=== PATIENT | male | born 1990 | race Caucasian/White ===

== ENCOUNTER 2020-01-13 11:52 | Emergency (ER) | payer MEDICAID ==
[~2020-01-13] VITALS: Ht 162.6 cm; Wt 74.0 kg
[2020-01-13] MEDS ORDERED: IBUPROFEN 600MG TABLET PO ONE (13:00)
[2020-01-13] MEDS ORDERED: TETANUS, DIPHTHERIA, PERTUSSIS VAC/PF 0.5ML (>7YR OLD) IM ONE (13:00)
[2020-01-13] MEDS ORDERED: LIDOCAINE HCL/PF 1% 10 MG/ML 5ML VIAL IJ ONE (13:00)
[2020-01-13] MEDS ORDERED: BACITRACIN ZINC OINT UDPKT TOP ONE (13:00)
[2020-01-13 14:00] VITALS: BP 135/100
== END 2020-01-13 14:15 | disposition home or self-care (01) ==
LOC: ER 11:52
DX: S71.112A Laceration without foreign body, left thigh, initial encounter (principal); Z98.890 Other specified postprocedural states; W26.0XXA Contact with knife, initial encounter; Y93.89 Activity, other specified; Y92.9 Unspecified place or not applicable
CPT/HCPCS: 12002; 90471; 90715; 99283; J3490

== ENCOUNTER 2020-01-20 08:41 | Emergency (ER) | payer MEDICAID ==
[~2020-01-20] VITALS: Ht 167.6 cm; Wt 62.0 kg
[2020-01-20 08:42] VITALS: BP 141/86
== END 2020-01-20 10:00 | disposition home or self-care (01) ==
LOC: ER 08:50
DX: Z48.02 Encounter for removal of sutures (principal); T81.33XD Disruption of traumatic injury wound repair, subsequent encounter; Y83.8 Other surgical procedures as the cause of abnormal reaction of the patient, or of later complication, without mention of misadventure at the time of the procedure; Z98.890 Other specified postprocedural states
CPT/HCPCS: 12002; 99282

== ENCOUNTER 2020-04-07 07:33 | Emergency (ER) | payer MEDICAID ==
[~2020-04-07] VITALS: Ht 167.6 cm; Wt 73.0 kg
[2020-04-07 08:46] VITALS: BP 127/89
== END 2020-04-07 08:47 | disposition home or self-care (01) ==
LOC: ER 07:33
DX: S61.213D Laceration without foreign body of left middle finger without damage to nail, subsequent encounter (principal); X58.XXXD Exposure to other specified factors, subsequent encounter
CPT/HCPCS: 99281